=== PATIENT | male | born 1945 | race Caucasian/White ===

== ENCOUNTER → 2020-01-17 | Outpatient (CLI) | payer OTHER ==
[~2020-01-17] MED LIST: FOLI1TAB61 PO; LISI40TA4 PO; METO-409 PO; NAPR-1023 PO; RIVA20TA PO
== END | disposition home or self-care (01) ==
LOC: SHCH 09:33
PROVIDERS: ATTEND Internal Medicine Cardiovascular Disease
DX: I48.0 Paroxysmal atrial fibrillation (principal)
CPT/HCPCS: 93306

== ENCOUNTER → 2022-12-04 | Outpatient (CLI) | payer OTHER ==
[~2022-12-04] MED LIST changes: -LISI40TA4 PO; +LISI40TA9 PO
== END | disposition home or self-care (01) ==
LOC: SHCH 08:13
PROVIDERS: ATTEND Internal Medicine Cardiovascular Disease
DX: I51.7 Cardiomegaly (principal); I49.8 Other specified cardiac arrhythmias; R06.09 Other forms of dyspnea
CPT/HCPCS: 93306